=== PATIENT | female | born 1995 | race Caucasian/White ===

== ENCOUNTER 2024-11-30 11:17 | Emergency (ER) | payer MEDICAID ==
[~2024-11-30] VITALS: Ht 167.6 cm; Wt 51.9 kg
[2024-11-30 11:38] VITALS: TEMP 98.1
--- NOTE | 2024-11-30 11:57 | Physician Documentation ---
History of Present Illness ~ Chief Complaint: Mental Health Eval Stated Complaint: PSYCH EVAL Time Seen by MD: 11:31 HPI 29-year-old female presents to the ED with concerns over hearing voices. States these voices are not commanding. Father states that she has mentioned voices are talking about framing her. Patient denies any HI or SI. Does not have a pre-existing psychiatric diagnosis. Her dad says she has not very cognitive. There she has not been diagnosed being developmentally delayed. Does however have a psychiatric evaluation scheduled for tomorrow. Dad called [facility] and reported the voices today they advised them to come to the ER for evaluation Day of Onset: November 30, 2024 Review of Systems All Other Systems at this time: Reviewed and Negative ROS As stated above in the HPI, otherwise all systems are reviewed and negative. Physical Exam Vital Signs: Temperature: 98.1, Source: Temporal, Heart Rate: 92, Respiratory Rate: 18, BP: 114/77, Pulse Oximetry: 95, Weight: 51.900 Physical Exam General: Alert, no apparent distress. Neurologic: Oriented x4. Psychiatric: Normal mood and affect. Anxious appearing Skin: Normal color, warm and dry. No edema, no ecchymosis. Progress Results/Orders Results/Orders Vital Signs 11/30/24 11:38 Temp 98.1 Pulse 92 Resp 18 B/P (MAP) 114/77 Pulse Ox 95 Medical Decision Making Findings Discussed with the patient and the father that she does not meet criteria for a suicidal or homicidal homicidal ideation hold. He does meet some criteria for being gravely disabled however she has a very good safety plan based on her being cared for by her father and mother. He also has a close follow up with the psychiatrist. Discussed this with both parties in the agree that getting di scharge today is the best plan for the patient to get the appropriate treatment. Differential Dx:Considerations: Include: Alcohol abuse, Anxiety, Bipolar disorder, Conversion disorder, Depression, Encephaloathy, Homicidal, Panic disor kellee, Personality disorder, Schizophrenia, Substance abuse, Suicidal, Other Departure Disposition: 01 HOME / SELF CARE / HOMELESS Impression: Primary Impression: Anxiety Additional Impression: Auditory hallucinations Condition: Stable Referrals: NO PRIMARY CARE PROVIDER (PCP) Signature Scribe Signature: h Attestation: The note accurately reflects work and decisions made by me.Edwardthais Connolly NP 11/30/24 12:03 EDWARD SALAS NP November 30, 2024 11:57
[2024-11-30 12:00] VITALS: BP 120/81; PULSE 88; RESP 18; O2SAT 99
== END 2024-11-30 12:17 | disposition home or self-care (01) ==
LOC: ER 11:18
DX: F41.9 Anxiety disorder, unspecified (principal); R44.0 Auditory hallucinations
CPT/HCPCS: 99281